=== PATIENT | female | born 1940 | race African-American/Black ===

== ENCOUNTER 2018-03-12 06:05 | Day surgery (SDC) | payer OTHER ==
[2018-03-08 17:49] VITALS: BMI 30.9
[2018-03-12 06:34] VITALS: TEMP 98.8
[2018-03-12] MEDS ORDERED: MIDAZOLAM HCL 2 MG/2 ML SINGLE DOSE VIAL ONE ×2 (08:24)
[2018-03-12] MEDS ORDERED: PROMETHAZINE HCL 25 MG/1 ML VIAL IVPB PRN (08:55)
[2018-03-12] MEDS ORDERED: oxyCODONE HCL 5 MG TABLET PO PRN (08:55)
[2018-03-12] MEDS ORDERED: ONDANSETRON 4 MG/2 ML VIAL IVPUSH PRN (08:55)
[2018-03-12] MEDS ORDERED: LACTATED RINGERS SOLUTION 1,000 ML IV SCH (09:00)
[2018-03-12 09:17] VITALS: BP 101/57; PULSE 75
--- NOTE | 2018-03-12 10:01 | OP ---
Operative Note - Note: Operative Date: 03/12/18 Pre-Operative Diagnosis: R kidney stone Operation: Right ESWL Findings: 8 mm & 3 mm mid, 4 mm low poles Right kidney stones Surgeon: Noe Chauhan Anesthesia: Fractional
--- NOTE | 2018-03-12 22:47 | OP ---
DATE OF OPERATION: 03/12/2018 PREOPERATIVE DIAGNOSIS: Right kidney stone. POSTOPERATIVE DIAGNOSIS: Right kidney stone. PROCEDURE: Right extracorporeal shock wave lithotripsy. ANESTHESIA: Fractional. ATTENDING: Kavon Kay MD DESCRIPTION OF OPERATION: Patient was brought in the operating room, placed in supine position on the operating room table. Ultrasonography and fluoroscopy were performed. Three stones were identified, an 8-mm mid-pole stone, a 3-mm mid-pole stone, and a 4-mm lower pole stone, all in the right kidney. It was decided to perform the lithotripsy on the 8-mm stone. Fractional anesthesia was administered, as well as preoperative antibiotics. Next, 3000 impulses at 18-20 joules of power were administered to the 8-mm stone with excellent fragmentation noted. No complications were noted. The patient tolerated the procedure very well. The patient will require further extracorporeal shock wave lithotripsy for the 3-mm and 4-mm remaining stones. The patient tolerated the procedure very well. The disposition of the patient was to the recovery room. KAVON KAY M.D. [id number]
== END 2018-03-12 10:30 | disposition home or self-care (01) ==
LOC: JASU-SURG 06:05
PROVIDERS: ATTEND Urology
PROC: 0TF3XZZ Fragmentation in Right Kidney Pelvis, External Approach (ICD-10-PCS; principal; 2018-03-12 08:00)
DX: N20.0 Calculus of kidney (principal)

== ENCOUNTER 2018-07-02 08:02 | Day surgery (SDC) | payer OTHER ==
[2018-06-29 09:42] VITALS: BMI 30.9
[2018-07-02] MEDS ORDERED: MIDAZOLAM HCL 2 MG/2 ML SINGLE DOSE VIAL ONE ×2 (09:50)
[2018-07-02] MEDS ORDERED: DEXAMETHASONE SOD PHOSPHATE 4 MG/1 ML VIAL ONE (09:51)
--- NOTE | 2018-07-02 10:43 | OP ---
Operative Note - Note: Operative Date: 07/02/18 Pre-Operative Diagnosis: Left kidney stones Operation: Left ESWL Findings: % mm upper pole 10 mm middle pole 15 mm lower pole Left renal stones Post-Operative Diagnosis: Same as Pre-op Surgeon: Noe Chauhan Anesthesia: Fractional Estimated Blood Loss (mls): 0
[2018-07-02] MEDS ORDERED: METOCLOPRAMIDE HCL INJECTION 10 MG/2 ML VIAL IVPUSH ONE ×2 (12:23→12:43)
[2018-07-02 14:20] VITALS: BP 104/58; PULSE 63; TEMP 97.7
--- NOTE | 2018-07-03 08:03 | OP ---
DATE OF OPERATION: 07/02/2018 PREOPERATIVE DIAGNOSIS: Left renal stone. POSTOPERATIVE DIAGNOSIS: Left renal stone. PROCEDURE: Left extracorporeal shock wave lithotripsy. ATTENDING: Kavon Kay MD ANESTHESIA: General. DESCRIPTION OF OPERATION: The patient was brought in the operating room and placed in supine position on the operating room table. Ultrasonography and fluoroscopy were performed. Three stones were identified, a 10-mm mid-pole stone, a 5-mm upper pole stone, and a 15-mm lower pole stone. It was decided to target the 10-mm mid-pole stone. Anesthesia and preoperative antibiotics were administered. At this point, shockwave lithotripsy was performed; 3000 impulses at 17 joules of power were administered to the stone with excellent fragmentation noted. No complications were noted. The patient tolerated the procedure very well. KAVON KAY M.D. /[id number]
== END 2018-07-02 13:35 | disposition home or self-care (01) ==
LOC: JASU-SURG 08:02
PROVIDERS: ATTEND Urology
PROC: 0TF4XZZ Fragmentation in Left Kidney Pelvis, External Approach (ICD-10-PCS; principal; 2018-07-02 09:30)
DX: N20.0 Calculus of kidney (principal)